=== PATIENT | male | born 1965 | race Caucasian/White ===

== ENCOUNTER 2017-11-07 11:49 | Emergency (ER) | payer OTHER ==
[2017-11-07 12:20] VITALS: BP 112/72
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
[2017-11-07] MEDS ORDERED: Ibuprofen TAB* 400 MG PO ONE (12:46)
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
--- NOTE | 2017-11-07 13:15 | RAD ---
HISTORY: neck pain. Hx of cervical spurs COMPARISONS: MRI dated November 19, 2007 VIEWS: 5, Frontal, lateral, open-mouth odontoid, and bilateral oblique views of the cervical spine. FINDINGS: The cervical spine is visualized from the skull base through C7-T1. ALIGNMENT: There is straightening of the normal cervical lordosis. VERTEBRAL BODIES: There is multilevel anterolateral marginal osteophyte formation most pronounced at C5-C6. JOINTS: There is uncovertebral and facet osteoarthritis. On the oblique views, there is mild multilevel neuroforaminal narrowing. INTERVERTEBRAL DISCS: There is diffuse loss of intervertebral disc height. SOFT TISSUE: The prevertebral soft tissues are normal. OTHER: The skull base is normal. The lung apices are clear. IMPRESSION: STRAIGHTENING OF THE CERVICAL LORDOSIS. DEGENERATIVE DISC DISEASE AND OSTEOARTHRITIS, MOST PRONOUNCED AT C5-C6.
== END 2017-11-07 13:42 | disposition home or self-care (01) ==
LOC: UCCORT 11:49
DX: M25.511 Pain in right shoulder (principal); F17.210 Nicotine dependence, cigarettes, uncomplicated; M50.322 Other cervical disc degeneration at C5-C6 level; M47.892 Other spondylosis, cervical region; M62.838 Other muscle spasm
CPT/HCPCS: 72050; 99203; A9270-GY; G0463

== ENCOUNTER 2019-01-07 10:54 | Emergency (ER) | payer OTHER ==
[2019-01-07 12:05] VITALS: BP 105/74
--- NOTE | 2019-01-07 12:24 | UC ---
Hand/Wrist HPI - HPI Summary HPI Summary: Pt presents with c/o right distal 4th finger, numbness, mottled coloring at distal anterior tip, sensitivity to cold, intermittent tingling and numbness X 1 month. Pt denies injury, trauma but is concerned that he may have FB. - History Of Current Complaint Chief Complaint: BETSEYkin Stated Complaint: RIGHT HAND RING FINGER NUMB X 1 MONTH Time Seen by Provider: 01/07/19 12:07 Hx Obtained From: Patient ?: No Onset/Duration: Gradual Onset, Lasting Weeks, Still Present Severity Initially: Mild Severity Currently: Moderate Pain Intensity: 2 Character Of Pain: Dull, Aching, Burning Aggravating Factor(s): Other - increased pressure, movement Alleviating Factor(s): Nothing Associated Signs And Symptoms: Positive: Redness, Numbness/Tingling Related History: Dominant Hand Right - Risk Factors Compartment Syndrome Risk Factors: Paresthesias - Allergies/Home Medications Allergies/Adverse Reactions: Allergies Allergy/AdvReac Type Severity Reaction Status Date / Time No Known Allergies Allergy Verified 12/26/17 09:55 Home Medications: Home Medications NK [No Home Medications Reported] 01/07/19 [History Confirmed 01/07/19] PMH/Surg Hx/FS Hx/Imm Hx Previously Healthy: Yes - Surgical History Surgical History: Yes Surgery Procedure, Year, and Place: LASIX - EYE - Family History Known Family History: Positive: None - Pt denies FMHX, Cardiac Disease - Social History Occupation: Employed Full-time Lives: With Family Alcohol Use: Occasionally Substance Use Type: None Smoking Status (MU): Former Smoker Type: Smokeless Tobacco Amount Used/How Often: 4 pinches daily Length of Time of Smoking/Using Tobacco: 30 YRS Have You Smoked in the Last Year: Yes - smokeless tobacco - Immunization History Most Recent Tetanus Shot: unknown Vaccination Up to Date: No Review of Systems All Other Systems Reviewed And Are Negative: Yes Constitutional: Positive: Negative Skin: Positive: Other - discoloration, cool temprature compared to other fingers Eyes: Positive: Negative ENT: Positive: Negative Respiratory: Positive: Negative Cardiovascular: Positive: Negative Gastrointestinal: Positive: Negative Genitourinary: Positive: Negative Motor: Positive: Negative Neurovascular: Positive: Decreased Sensation Musculoskeletal: Positive: Myalgia Neurological: Positive: Paresthesia, Numbness Psychological: Positive: Negative Is Patient Immunocompromised?: No Physical Exam Triage Information Reviewed: Yes Appearance: Well-Appearing Vital Signs: Initial Vital Signs Temp 97.6 F 01/07/19 11:57 Pulse 60 01/07/19 11:57 Resp 16 01/07/19 11:57 BP 105/74 01/07/19 11:57 Pulse Ox 100 01/07/19 11:57 Vital Signs Reviewed: Yes Eye Exam: Normal ENT: Positive: Hearing grossly normal Dental Exam: Normal Neck exam: Normal Respiratory: Positive: No respiratory distress Musculoskeletal Exam: Normal Musculoskeletal: Positive: Strength Intact, ROM Intact Neurological: Positive: Other: - anterior DIP and MIP with "stripe" ~ 5mm in width and length of mottled discoloration, skin temp is slightly cooler compared to other fingers, pale in color in comparison to other fingers Psychological Exam: Normal Skin Exam: Other - right index distal, anterior, pale, with mottled area Diagnostics - Radiology No standard instances Radiology Interpretation Completed By: Radiologist - Clinical Dental Technician: Sue Mathews S, ([id number]) Shear Operator Helper: ANGEL (ANGEL) Report Date: 2018 12:10:00 Report Status: Final ======= Start of Report Content Patient Name: WILLIAM GARCIA Medical Record#: [id number] Ordering Physician: Preethi Avila SPED TEACHER Acct.#: [id number] : 1965 Age: 53 Sex: M Location: [facility] Exam Date: 01/07/19 1210 ADM Status: REG ER Order Information: FINGER RIGHT RING Accession Number: [id number] CPT: 16685 Indication: Right fourth finger injury. 3 views of the right fourth digit demonstrates no fracture. No other bone or joint abnormality is identified. IMPRESSION: No fracture of the right fourth digit is noted. <Electronically signed by Sue Mathews MD in OV> 01/07/191227 Dictated By: Sue Mathews MD Dictated Date/Time: 1227 Transcribed Date/Time: 01/07/191227 Copy to: CC:Obed Harkins MD; Preethi Avila SPED TEACHER; No Primary Care Phys,NOPCP Imaging - [facility] Imaging - [facility] - [place] [facility] [place] [address] [address] ph ([phone]) ph ([phone]) ph ([phone]) End of Report Content Hand/Wrist Course/Dx - Differential Dx/Diagnosis Differential Diagnosis/HQI/PQRI: Carpal Tunnel Syndrome, Foreign Body Provider Diagnosis: Finger numbness, Discoloration of skin of finger Discharge ED - Sign-Out/Discharge Documenting (check all that apply): Patient Departure All imaging exams completed and their final reports reviewed: Yes - Discharge Plan Condition: Stable Disposition: HOME Patient Education Materials: Paresthesia (ED), Arthralgia (ED) Referrals: [facility] [place] [facility] [Outside] Avinash Page MD [Medical Doctor] - As Soon As Possible Sahil Jones MD [Medical Doctor] - As Soon As Possible No Primary Care Phys,NOPCP [Primary Care Provider] - Additional Instructions: Please follow up with your PCP and the specialists listed on your discharge instructions. - Billing Disposition and Condition Condition: STABLE Disposition: Home
== END 2019-01-07 12:46 | disposition home or self-care (01) ==
LOC: UCCORT 10:54
DX: M79.644 Pain in right finger(s) (principal); R20.0 Anesthesia of skin; Z87.891 Personal history of nicotine dependence
CPT/HCPCS: 73140; 99211; G0463